=== PATIENT | female | born 1990 | race Caucasian/White ===

== ENCOUNTER 2018-03-11 09:21 | Emergency (ER) | payer BC ==
[~2018-03-11] VITALS: Ht 170.2 cm; Wt 79.6 kg
[2018-03-11 09:29] VITALS: TEMP 98.3
[2018-03-11 11:46] VITALS: BP 102/76; PULSE 46
== END 2018-03-11 11:47 | disposition home or self-care (01) ==
LOC: COL.ER 09:21
DX: G43.909 Migraine, unspecified, not intractable, without status migrainosus (principal); Z90.710 Acquired absence of both cervix and uterus
CPT/HCPCS: J1200; J1885; J2765

== ENCOUNTER 2019-02-26 09:04 | Day surgery (SDC) | payer BC ==
[~2019-02-26] VITALS: Ht 170.2 cm; Wt 75.4 kg
[2019-02-26] MEDS ORDERED: ZOLOFT 50MG50 MG PO (09:59)
[2019-02-26] MEDS ORDERED: TOPAMAX50 MG PO (10:00)
[2019-02-26] MEDS ORDERED: INDERAL LA 60MG60 MG PO (10:51)
[2019-02-26] MEDS ORDERED: TOPAMAX50 MG (10:58)
[2019-02-26] MEDS ORDERED: MULTIPLE VITAMI1 CAP PO (11:00)
[2019-02-26] MEDS ORDERED: MAG-OX 400400 MG/TAB PO (11:00)
[2019-02-26] MEDS ORDERED: BENADRYL50 MG PO (11:01)
[2019-02-26] MEDS ORDERED: PROBIOTIC FORMU1 CAP PO (11:01)
[2019-02-26 11:04] VITALS: BP 133/97; PULSE 105; TEMP 97.7
[2019-02-26 12:29] VITALS: BP 129/92; PULSE 76
[2019-02-26 12:44] VITALS: BP 119/82; PULSE 76
--- NOTE | 2019-02-26 13:15 | NUR ---
PT RETURNED FORM ENDO PRODEDURE SUITE. DENIES NAUSEA AND VOMITING. A/O X3. DENIES PAIN. IV DC'D TO RIGHT ANTECUBITAL. TOLERATING FOOD AND FLUIDS. POST OP INSTRUCTIONS GIVEN, PT VERBALIZES UNDERSTANDING. PT DISCHARGED WC WITH PRESENT INTO FAMILY VEHICLE.
== END 2019-02-26 13:50 | disposition home or self-care (01) ==
LOC: SDCO 09:04
DX: K21.0 Gastro-esophageal reflux disease with esophagitis (principal); K31.89 Other diseases of stomach and duodenum; K62.89 Other specified diseases of anus and rectum; K92.1 Melena; R19.7 Diarrhea, unspecified
CPT/HCPCS: J1200; J2250; J2405; J3010; J7030

== ENCOUNTER 2019-03-02 18:30 | Emergency (ER) | payer BC ==
[~2019-03-02] VITALS: Ht 170.2 cm; Wt 75.9 kg
[~2019-03-02 18:30] MED LIST: BENADRYL50 MG PO; INDERAL LA 60MG60 MG PO; MAG-OX 400400 MG/TAB PO; MULTIPLE VITAMI1 CAP PO; PROBIOTIC FORMU1 CAP PO; TOPAMAX50 MG; TOPAMAX50 MG PO; ZOLOFT 50MG50 MG PO
[2019-03-02 18:32] VITALS: TEMP 97.3
[2019-03-02 19:05] LABS: COLLECTION METHOD CLEAN CATCH
[2019-03-02 19:09] LABS: BASO % 0.5 % (0.0-2.0); EOS # 0.1 (0.0-0.7); EOS % 1.9 % (0-4.0); GRAN # 3.2 (1.4-6.5); GRAN % 44.3 % (42.2-75.2); HEMATOCRIT 40.2 % (37.0-47.0); HEMOGLOBIN 14.3 g/dl (12.5-16.0); LYMPH # 3.2 (1.2-3.4); LYMPH % 44.4 % (20.0-51.0); MEAN CELL VOLUME 90 fl (80.0-100.0); MEAN CORPUSCULAR HEMOGLOBIN 32 pg (27.0-31.0); MEAN CORPUSCULAR HGB CONC 36 g/dl (33.0-37.0); MONO # 0.6 (0.1-0.6); MONO % 8.8 % (1.7-9.3); PLATELET COUNT 251 K/mm3 (130-400); RED BLOOD COUNT 4.46 M/mm3 (4.10-5.30); REDCELL DISTRIBUTION WIDTH-CV 11.8 % (11.5-14.5)
[2019-03-02 19:20] LABS: ALANINE AMINOTRANSFERASE < 6 U/L (9-52); ALBUMIN 4.8 gm/dL (3.5-5.0); ALKALINE PHOSPHATASE 40 U/L (50-136); ANION GAP 11 mmol/L (7-16); AST,SGOT 21 U/L (15-37); BILIRUBIN,TOTAL 0.3 mg/dL (0.0-1.0); BLOOD UREA NITROGEN 14 mg/dL (7-17); CALCIUM 9.7 mg/dL (8.4-10.2); CARBON DIOXIDE 23 mmol/L (22-30); CHLORIDE 107 mmol/L (98-107); CREATININE, serum 0.96 (0.52-1.25); GLUCOSE 82 mg/dL (74-106); LIPASE 84 U/L (23-300); POTASSIUM 3.8 mmol/L (3.4-5.0); SODIUM 141 mmol/L (137-145); TOTAL PROTEIN 8.1 gm/dL (6.4-8.2)
[2019-03-02 19:21] LABS: MUCOUS Present /lpf; PH 8 (5-8); SQUAMOUS EPITHELIAL None Seen /hpf; URINE APPEARANCE Clear; URINE BACTERIA None Seen /hpf; URINE BILIRUBIN Negative (NEGATIVE); URINE BLOOD Negative (NEGATIVE); URINE COLOR Yellow; URINE GLUCOSE Negative (NEGATIVE); URINE KETONE Negative (NEGATIVE); URINE LEUKOCYTE ESTERASE Negative (NEGATIVE); URINE NITRATE Negative (NEGATIVE); URINE PROTEIN(semi-quant) Negative (NEGATIVE); URINE RBC 0-2 /hpf; URINE UROBILINOGEN Negative (NEGATIVE)
[2019-03-02 19:22] LABS: C-REACTIVE PROTEIN < 0.5 mg/dL (0.0-0.9)
[2019-03-02 21:05] VITALS: BP 111/87; PULSE 58
== END 2019-03-02 21:05 | disposition home or self-care (01) ==
LOC: COL.ER 18:30
PROVIDERS: Emergency Medicine
DX: R10.12 Left upper quadrant pain (principal); G89.29 Other chronic pain; Z90.710 Acquired absence of both cervix and uterus
CPT/HCPCS: J1885; J2405; J3010; J7030; Q9967

== ENCOUNTER → 2019-12-26 | Outpatient (CLI) | payer BC | LOC: ZCOL.LAB 15:25 | DX: J02.9 Acute pharyngitis, unspecified (principal); Z20.828 Contact with and (suspected) exposure to other viral communicable diseases ==

== ENCOUNTER 2020-08-17 15:16 | Emergency (ER) | payer BC ==
[~2020-08-17] VITALS: Ht 170.2 cm; Wt 84.5 kg
[2020-08-17 15:29] VITALS: BP 112/87; TEMP 97.5
[2020-08-17] MEDS ORDERED: FLORINEF ACETA0.1 MG PO (15:51)
[2020-08-17] MEDS ORDERED: PAMELOR 25MG25 MG PO (15:53)
[2020-08-17 16:03] LABS: BASO % 0.4 % (0.0-2.0); EOS # 0.1 (0.0-0.7); EOS % 1.3 % (0-4.0); GRAN # 4.7 (1.4-6.5); GRAN % 56.4 % (42.2-75.2); HEMATOCRIT 39.3 % (37.0-47.0); HEMOGLOBIN 14.2 g/dl (12.5-16.0); LYMPH # 2.7 (1.2-3.4); LYMPH % 32.6 % (20.0-51.0); MEAN CELL VOLUME 90 fl (80.0-100.0); MEAN CORPUSCULAR HEMOGLOBIN 33 pg (27.0-31.0); MEAN CORPUSCULAR HGB CONC 36 g/dl (33.0-37.0); MEAN PLATELET VOLUME 10.7 fl (7.4-10.4); MONO # 0.8 (0.1-0.6); MONO % 9.1 % (1.7-9.3); PLATELET COUNT 242 K/mm3 (130-400); RED BLOOD COUNT 4.37 M/mm3 (4.10-5.30); REDCELL DISTRIBUTION WIDTH-CV 11.4 % (11.5-14.5)
[2020-08-17 16:15] LABS: ALBUMIN 4.4 gm/dL (3.5-5.0); BILIRUBIN,TOTAL 0.3 mg/dL (0.0-1.0); CALCIUM 9.4 mg/dL (8.4-10.2); CREATININE, serum 1.02 (0.52-1.25); POTASSIUM 3.9 mmol/L (3.4-5.0); TOTAL PROTEIN 7.4 gm/dL (6.4-8.2)
[2020-08-17 17:11] LABS: COLLECTION METHOD CLEAN CATCH
[2020-08-17 17:37] LABS: PH 7 (5-8); URINE APPEARANCE Cloudy; URINE BILIRUBIN Negative (NEGATIVE); URINE BLOOD Negative (NEGATIVE); URINE COLOR Yellow; URINE GLUCOSE Negative (NEGATIVE); URINE KETONE Negative (NEGATIVE); URINE LEUKOCYTE ESTERASE Negative (NEGATIVE); URINE NITRATE Negative (NEGATIVE); URINE PROTEIN(semi-quant) Negative (NEGATIVE); URINE RBC None Seen /hpf; URINE UROBILINOGEN Negative (NEGATIVE)
[2020-08-17 17:38] LABS: BUDDING YEAST Present /hpf; SQUAMOUS EPITHELIAL None Seen /hpf; URINE BACTERIA Rare /hpf
[2020-08-17 17:56] VITALS: PULSE 66
== END 2020-08-17 17:56 | disposition home or self-care (01) ==
LOC: COL.ER 15:16
PROVIDERS: Physician Assistant
DX: R20.2 Paresthesia of skin (principal); G43.909 Migraine, unspecified, not intractable, without status migrainosus; F41.9 Anxiety disorder, unspecified; F32.9 Major depressive disorder, single episode, unspecified

== ENCOUNTER 2020-09-01 07:27 | Outpatient (CLI) | payer BC ==
[2020-09-01] VITALS (8 sets, daily range): BP systolic 112–124; BP diastolic 78–89; PULSE 60–74; TEMP 98.4
[~2020-09-01] VITALS: Ht 170.3 cm; Wt 86.1 kg
[~2020-09-01 07:27] MED LIST changes: +FLORINEF ACETA0.1 MG PO; +PAMELOR 25MG25 MG PO
[2020-09-01] MEDS ORDERED: DIAST10 RC (08:09)
[2020-09-01] MEDS ORDERED: IMITREX100 MG PO (08:10)
--- NOTE | 2020-09-01 10:00 | NUR ---
Report from Ness PINZON. Pt resting in bed, denies dizziness, pain and needs at this time. VSS
[2020-09-01] MEDS ORDERED: TOPROL XL 25MG25 MG PO (12:12)
--- NOTE | 2020-09-01 12:30 | NUR ---
INT discontinued intact. Discharge instructions given. Transferred to private car by marino
== END 2020-09-01 12:30 | disposition home or self-care (01) ==
LOC: COL.CAR 07:27
DX: R42 Dizziness and giddiness (principal); R55 Syncope and collapse; R20.0 Anesthesia of skin; G43.909 Migraine, unspecified, not intractable, without status migrainosus; I73.00 Raynaud's syndrome without gangrene; F41.9 Anxiety disorder, unspecified; F32.9 Major depressive disorder, single episode, unspecified; Z79.899 Other long term (current) drug therapy; Z83.3 Family history of diabetes mellitus; Z82.49 Family history of ischemic heart disease and other diseases of the circulatory system; Z80.9 Family history of malignant neoplasm, unspecified

== ENCOUNTER → 2020-10-07 | Outpatient (CLI) | payer BC ==
[~2020-10-07] MED LIST changes: +DIAST10 RC; +IMITREX100 MG PO; +TOPROL XL 25MG25 MG PO
== END ==
LOC: COL.CARD 09:29
DX: R20.2 Paresthesia of skin (principal); R41.840 Attention and concentration deficit; R55 Syncope and collapse; G43.109 Migraine with aura, not intractable, without status migrainosus

== ENCOUNTER → 2021-01-18 | Outpatient (CLI) | payer BC | LOC: ZCOL.LAB 08:18 | DX: Z01.812 Encounter for preprocedural laboratory examination (principal); Z20.822 Contact with and (suspected) exposure to COVID-19 ==